=== PATIENT | female | born 1965 | race Caucasian/White ===

== ENCOUNTER 2018-11-23 15:16 | Emergency (ER) | payer OTHER ==
--- OUTSIDE RECORDS SUMMARY | 2018-11-23 15:21 | XMS REPORT | Continuity of Care Document ---
:1965 External Reference #:[id number] Author Name Pippa Tolentino N.Franko Address [address] [place] [id number] Care Team Providers Name Role Phone Gi Acosta MD - Neurology Care Team Information Casualty Claim Adjuster Jennifer Powell MD Care Team Information Casualty Claim Adjuster [phone] Problems Active Problems Provider Date Hysterectomy Pippa Tolentino, N.P. Onset: 02/15/2015 Note: only uterus removed Essential hypertension Pippa Tolentino, N.P. Onset: 09/05/2016 Hyperlipidemia Pippa Tolentino, N.P. Onset: 06/28/2017 Seasonal allergic rhinitis Pippa Tolentino, N.PAlbertina Onset: 06/11/2018 Social History Type Date Description Comments Sex Unknown Tobacco Use Start: Unknown Never Smoked Cigarettes ETOH Use Denies alcohol use Tobacco Use Start: Unknown Patient has never smoked Smoking Status Reviewed: 10/02/17 Patient has never smoked Allergies, Adverse Reactions, Alerts Active Allergies Reaction Severity Comments Date Penicillin 08/16/2012 Medications Active Medications SIG Qnty Indications Ordering Date Provider Prednisone 2 by mouth 10tabs Rajan, 11/11/2018 20mg Tablets every day x 5 Mashelle, N.P. days Montelukast Sodium take one tablet 30tabs Rajan, 11/11/2018 10mg Tablets by mouth every Mashelle, N.P. evening Vascepa take two 120caps Rajan, 05/10/2018 1gm Capsules capsules by Mashelle, N.P. mouth twice a day with food Hydrochlorothiazide Take One Tablet 90tabs Rajan, 06/28/2017 12.5mg By Mouth Every Mashelle, N.P. Tablets Morning Xyzal Allergy 24HR Rajan, 10/13/2016 5mg Tablets Pippa, N.P. History Medications Benzonatate 1 by mouth three 15caps Pippa Tolentino, 10/23/2018 - 200mg times a day as N.P. 11/11/2018 Capsules needed cough Azithromycin 2 by mouth day 6tabs Pippa Tolentino, 10/23/2018 - 250mg one then 1 by N.P. 11/11/2018 Tablets mouth every day x 4 days Azithromycin as directed 1tabs Pippa Tolentino, 10/08/2018 - 250mg N.P. 10/23/2018 Tablets Ciprofloxacin HCL 1 by mouth twice 20tabs Pippa Tolentino, 09/24/2018 - 500mg a day x 10 days N.P. 10/01/2018 Tablets Medications Administered in Office Medication SIG Qnty Indications Ordering Provider Date Pippa Garcia N.P. 09/24/2018 Injection PPD Pippa Tolentino N.P. 09/19/2016 Injection Bonilla Ayoub MD 09/17/2007 Injection Immunizations CPT Code Status Date Vaccine Lot # [id number] Given 08/07/2012 Tdap (Adacel) Ages 7 And Above Only [id number] Refused 11/11/2018 Influenza Vac, Quadrivalent, Split, 0.5mL Dosage, Im Use [id number] Refused 01/22/2018 Influenza Vac, Quadrivalent, Split, 0.5mL Dosage, Im Use [id number] Refused 01/19/2017 Influenza Vac, Quadrivalent, Split, 0.5mL Dosage, Im Use Vital Signs Date Vital Result Comment 11/11/2018 1:01pm Body Temperature 98.4 F Weight 179.00 lb Heart Rate 88 /min BP Systolic 148 mmHg BP Diastolic 88 mmHg O2 % BldC Oximetry 99 % 10/23/2018 12:54pm Body Temperature 98.4 F Weight 178.12 lb Heart Rate 78 /min BP Systolic 114 mmHg BP Diastolic 78 mmHg O2 % BldC Oximetry 99 % Results Test Date Facility Test Result H/L Range Note Comprehensive Met Panel[facility] 08/15/2018 [facility] Sodium 144 mmol/L 135- 146 1, 2 Potassium 3.9 mmol/L 3.5-5.2 Chloride# 104 mmol/L 97-110 3 Carbon Dioxide 26 mmol/L 24-34 Calcium 9.1 mg/dL 8.5-10.5 4 Glucose 89 mg/dL 70-105 BUN 10 mg/dL 6-26 Creatinine 0.8 mg/dL 0.5-1.4 Total Protein 6.8 g/dL 6.0-8.0 Albumin 4.4 g/dL 3.6-4.9 Globulin 2.4 g/dL 2.0-3.5 A/G Ratio 1.8 Ratio 1.0-2.2 Total Bilirubin 0.7 mg/dL 0.1-1.3 Alkaline Phosphatase 40 U/L 24-140 Alt 17 U/L 3-42 Ast 27 U/L 8-42 Anion Gap 14 mmol/L 5-15 5 Female Egfr 81 >60 6 Male Egfr 101 >60 7 Lipid 08/15/2018 [facility] Cholesterol 221 mg/dL High 50-199 Triglycerides 103 mg/dL 30-200 HDL 54 mg/dL 35-85 8 Chol/ HDL Ratio 4.1 ratio 3.7-5.6 VLDL 21 mg/dL 2-29 LDL (Calc) 147 mg/dL High 20-99 9 1 This sample is drawn by:ss/bulk system operator 2 Updated reference range on new analyzer 3 Updated reference range on new analyzer 4 Updated reference range 06-05-2018 5 Updated Reference Range 6 Concerning GFR Guidelines for Americans: Normal function or mild renal disease, if clinically at risk: >/= 60 mL/min Moderately decreased: 30-59 Severely decreased: 15-29 Renal failure: <15 There is reduced accuracy above 60ml/min/1.73 m squared, but the numeric value may be clinically useful in the near 60 range 7 Concerning GFR Guidelines: Normal function or mild renal disease, if clinically at risk: >/= 60 mL/min Moderately decreased: 30-59 Severely decreased: 15-29 Renal failure: <15 There is reduced accuracy above 60ml/min/1.73 m squared, but the numeric value may be clinically useful in the near 60 range Glomerular Filtration Rate (GFR) is estimated based on the CKD-EPI equation, which assumes a steady state for creatinine as recommended by the National Kidney Disease Education Program in conjunction with the National Institutes of Health and the National Kidney Foundation. Clinical conditions in which it may be necessary to measure GFR by using clearance methods include extremes of age and body size, severe malnutrition or obesity, diseases of skeletal muscle, paraplegia or quadriplegia, vegetarian diet, rapidly changing kidney function, and calculation of the dose of potentially toxic drugs that are excreted by the kidneys. 8 Per NCEP ATP III Guidelines: Results lower than 40 mg/dL are suggestive of increased risk for coronary artery disease. Results > or = to 60 mg/dL are considered a negative risk factor. 9 Per NCEP ATP III Guidelines: Normal Population <130 Patients with medical conditions: CHD/DM Optimal: <100 Borderline high: 130-159 High: 160-189 Very high: >189 Procedures Date Code Description Status 02/25/2018 [id number] Mammogram Completed 05/23/2016 [id number] Colonoscopy Completed 02/21/2016 [id number] Mammogram Completed 03/03/2015 [id number] Mammogram Completed 02/27/2014 [id number] Mammogram Completed 06/22/2011 [id number] Colonoscopy Completed Medical Devices Description No Information Available Encounters Type Date Location Provider Dx Diagnosis Office Visit 10/23/2018 Pippa Wu, J20.9 Acute bronchitis, 1:00p N.P. unspecified I10 Essential (primary) hypertension Office Visit 09/24/2018 11:00a Pippa Wu, J01.00 Acute maxillary N.P. sinusitis, unspecified Z11.1 Encounter for screening for respiratory tuberculosis R05 Cough I10 Essential (primary) hypertension Office Visit 08/15/2018 8:45a Pippa Wu, I10 Essential ( primary) N.P. hypertension E78.00 Pure hypercholesterolemia, unspecified Office Visit 06/11/2018 11:00a Pippa Wu, R21 Rash and other N.P. nonspecific skin eruption E66.9 Obesity, unspecified I10 Essential (primary) hypertension Z68.30 Body mass index (BMI) 30.0-30.9, adult Assessments Date Code Description Provider 11/11/2018 R53.83 Other fatigue Pippa Tolentino, N.P. 11/11/2018 M25.50 Pain in unspecified joint Pippa Tolentino, N.P. 11/11/2018 J30.9 Allergic rhinitis, unspecified Pippa Tolentino, N.P. 11/11/2018 Z28.21 Immunization not carried out because of Pippa Tolentino, N.P. patient refusal 10/23/2018 J20.9 Acute bronchitis, unspecified Pippa Tolentino, N.P. 10/23/2018 I10 Essential (primary) hypertension Pippa Tolentino, N.P. 09/24/2018 J01.00 Acute maxillary sinusitis, unspecified Pippa Tolentino, N.P. 09/24/2018 Z11.1 Encounter for screening for respiratory Pippa Tolentino, N.P. tuberculosis 09/24/2018 R05 Cough Pippa Tolentino, N.P. 09/24/2018 I10 Essential (primary) hypertension Pippa Tolentino, N.P. 08/15/2018 I10 Essential (primary) hypertension Pippa Tolentino, N.P. 08/15/2018 E78.00 Pure hypercholesterolemia, unspecified Pippa Tolentino, N.P. 08/15/2018 I10 Essential (primary) [facility] 08/15/2018 E78.00 Pure hypercholesterolemia, unspecified [facility] 06/11/2018 R21 Rash and other nonspecific skin eruption Pippa Tolentino, N.P. 06/11/2018 E66.9 Obesity, unspecified Pippa Tolentino, N.P. 06/11/2018 I10 Essential (primary) hypertension Pippa Tolentino, N.P. 06/11/2018 Z68.30 Body mass index (BMI) 30.0-30.9, adult Pippa Tolentino, N.P. Plan of Treatment 11/11/2018 - Pippa Tolentino, N.P.R53.83 Other fatigueComments:most likely result of lifestylediscussed weight, inactivity, smoking, poor eating habits as contributors to fatigueflu lab iedvqraI98.50 Pain in unspecified jointComments:f /u lab lexqhilV77.9 Allergic rhinitis, unspecifiedComments:cont Xyzal - suggest taking it in amstart short course [facility] [place] any nasal spray so this is not an optionrecheck if no better 5 daysZ28.21 Immunization not carried out because of patient refusalComments: patient counseled about benefits of receiving flu vaccinedeclines at this time for non-specific reasonAllNew Medication:Prednisone 20 mg - 2 by mouth every day x 5 daysMontelukast Sodium 10 mg - take one tablet by mouth every evening Functional Status Description No Information Available Mental Status Description No Information Available Referrals Refer to Reason for Referral Status Appt Date Ulices Stacy persistent itchy rash Closed 06/21/2018 [facility] [address] [place] [id number] [phone]
--- OUTSIDE RECORDS SUMMARY | 2018-11-23 15:21 | XMS REPORT | Continuity of Care Document ---
:1965 External Reference #:[id number] Author Name Pippa Tolentino N.Franko Address [address] [place] [id number] Care Team Providers Name Role Phone Gi Acosta MD - Neurology Care Team Information Lens Molder [phone] Jennifer Powell MD Care Team Information Lens Molder [phone] Problems Active Problems Provider Date Hysterectomy Pippa [...] Medications SIG Qnty Indications Ordering Date Provider Benzonatate 1 by mouth 15caps Rajan, 10/23/2018 200mg Capsules three times a Mashelle, N.P. day as needed cough Azithromycin 2 by mouth day 6tabs Rajan, 10/23/2018 250mg Tablets one then 1 by Mashelle, N.P. mouth every day x 4 days Vascepa take two 120caps Rajan, 05/10/2018 1gm Capsules capsules by Mashelle, N.P. mouth twice a day with food Hydrochlorothiazide Take One Tablet 90tabs Rajan, 06/28/2017 12.5mg By Mouth Every Mashelle, N.P. Tablets Morning Xyzal Allergy 24HR Rajan, 10/13/2016 5mg Tablets Mascelile, N.P. History Medications Azithromycin as directed 1tabs Pippa Tolentino, 10/08/2018 - 250mg N.P. 10/23/2018 Tablets Ciprofloxacin HCL 1 by mouth twice 20tabs Pippa Tolentino, 09/24/2018 - 500mg a day x 10 days N.P. 10/01/2018 Tablets Medications Administered in Office Medication SIG Qnty Indications Ordering Provider Date Pippa Garcia, N.P. 09/24/2018 Injection Pippa Garcia N.P. 09/19/2016 Injection Bonilla Ayoub MD 09/17/2007 Injection Immunizations CPT Code Status Date Vaccine Lot # [id number] Given 08/07/2012 Tdap (Adacel) Ages 7 And Above Only [id number] Refused 01/22/2018 Influenza Vac, Quadrivalent, Split, 0.5mL Dosage, Im Use 68044 Refused 01/19/2017 Influenza Vac, Quadrivalent, Split, 0.5mL Dosage, Im Use Vital Signs Date Vital Result Comment 10/23/2018 12:54pm Body Temperature 98.4 F Weight 178.12 lb Heart Rate 78 /min BP Systolic 114 mmHg BP Diastolic 78 mmHg O2 % BldC Oximetry 99 % 09/24/2018 10:55am Body Temperature 98.8 F Weight 172.00 lb Heart Rate 75 /min BP Systolic 126 mmHg BP Diastolic 86 mmHg O2 % BldC Oximetry 98 % Results Test Date Facility Test Result [...] LDL (Calc) 147 mg/dL High 20-99 9 Laboratory test finding 05/10/2018 [facility] TSH 2.84 uIU/mL 0.35-4.94 10 Comprehensive Met Panel[facility] 05/10/2018 [facility] Sodium 139 mmol/L 135- 146 11 Potassium 5.0 mmol/L 3.5-5.2 Chloride# 104 mmol/L 97-110 12 Carbon Dioxide 28 mmol/L 24-34 Glucose 90 mg/dL 70-105 BUN 17 mg/dL 6-26 Creatinine 0.8 mg/dL 0.5-1.4 Calcium 9.4 mg/dL 8.5-10.2 Total Protein 6.7 g/dL 6.0-8.0 Albumin 4.5 g/dL 3.6-4.9 Globulin 2.2 g/dL 2.0-3.5 A/G Ratio 2.0 Ratio 1.0-2.2 Total Bilirubin 0.6 mg/dL 0.1-1.3 Alkaline Phosphatase 45 U/L 24-140 Alt 14 U/L 3-42 Ast 17 U/L 8-42 Anion Gap 7 mmol/L 5-15 13 Carmen Egfr >60 >60 14 Non Carmen Egfr >60 >60 15 Lipid 05/10/2018 [facility] Cholesterol 235 mg/dL High 50-199 Triglycerides 167 mg/dL 30-200 HDL 52 mg/dL 35-85 16 Chol/ HDL Ratio 4.6 ratio 3.7-5.6 VLDL 33 mg/dL High 2-29 LDL (Calc) 150 mg/dL High 20-99 17 1 This sample is drawn by:ss/chief technology officer 2 Updated reference range on new analyzer 3 Updated reference range on new analyzer 4 Updated reference range 06-05-2018 5 Updated Reference Range 2-2018 6 Concerning GFR Guidelines for Americans: Normal [...] high: 130-159 High: 160-189 Very high: >189 10 This sample is drawn by:DL/[employer] 11 Updated reference range on new analyzer 12 Updated reference range on new analyzer 13 Updated Reference Range 14 Concerning GFR Guidelines for Americans: Normal function or mild renal disease, if clinically at risk: >/= 60 mL/min Moderately decreased: 30-59 Severely decreased: 15-29 Renal failure: <15 15 Concerning GFR Guidelines: Normal function or mild renal disease, if clinically at risk: >/= 60 mL/min Moderately decreased: 30-59 Severely decreased: 15-29 Renal failure: <15 Glomerular Filtration Rate (GFR) is estimated based on the MDRD equation, which assumes a steady state for [...] drugs that are excreted by the kidneys. 16 Per NCEP ATP III Guidelines: Results lower than 40 mg/dL are suggestive of increased risk for coronary artery disease. Results > or = to 60 mg/dL are considered a negative risk factor. 17 Per NCEP ATP III Guidelines: Normal Population <130 Patients with medical conditions: CHD/DM Optimal: <100 Borderline high: 130-159 High: 160-189 Very high: >189 Procedures Date Code Description Status 02/25/2018 [id number] Mammogram Completed 05/23/2016 [id number] Colonoscopy Completed 02/21/2016 [id number] Mammogram Completed 03/03/2015 [id number] Mammogram Completed 02/27/2014 [id number] Mammogram Completed 06/22/2011 [id number] Colonoscopy Completed Medical Devices Description No Information Available Encounters Type Date Location Provider Dx Diagnosis Office Visit 09/24/2018 Pippa Wu, J01.00 Acute maxillary 11:00a N.P. sinusitis, unspecified Z11.1 Encounter for screening for respiratory tuberculosis R05 Cough I10 Essential (primary) hypertension Office Visit 08/15/2018 8:45a Pippa Wu, I10 Essential ( primary) N.P. hypertension E78.00 Pure hypercholesterolemia, unspecified Office Visit 06/11/2018 11:00a Pippa uW, R21 Rash and other N.P. nonspecific skin eruption E66.9 Obesity, unspecified I10 Essential (primary) hypertension Z68.30 Body mass index (BMI) 30.0-30.9, adult Office Visit 05/10/2018 8:15a Pippa Wu, I10 Essential ( primary) N.P. hypertension I10 Essential (primary) hypertension R53.83 Other fatigue R53.83 Other fatigue E78.00 Pure hypercholesterolemia, unspecified E78.00 Pure hypercholesterolemia, unspecified Z13.31 Encounter for screening for depression J30.9 Allergic rhinitis, unspecified Assessments Date Code Description Provider 10/23/2018 J20.9 Acute bronchitis, unspecified Esther Tolentinole, N.P. 10/23/2018 I10 Essential (primary) hypertension Esther Tolentinole, N.P. 09/24/2018 J01.00 Acute maxillary sinusitis, unspecified Esther Tolentinole, N.P. 09/24/2018 Z11.1 Encounter for screening for respiratory Pippa Tolentino, N.P. tuberculosis 09/24/2018 R05 Cough Esther Tolentinole, N.P. 09/24/2018 I10 Essential (primary) hypertension Esther Tolentinole, N.P. 08/15/2018 I10 Essential (primary) hypertension Esther Tolentinole, N.P. 08/15/2018 E78.00 Pure hypercholesterolemia, unspecified Esther Tolentinole, N.P. 08/15/2018 I10 Essential (primary) [facility] 08/15/2018 E78.00 Pure hypercholesterolemia, unspecified [facility] 06/11/2018 R21 Rash and other nonspecific skin eruption Esther Tolnetinole, N.P. 06/11/2018 E66.9 Obesity, unspecified Esther Tolentinole, N.P. 06/11/2018 I10 Essential (primary) hypertension Esther Tolentinole, N.P. 06/11/2018 Z68.30 Body mass index (BMI) 30.0-30.9, adult Esther Tolentinole, N.P. 05/10/2018 I10 Essential (primary) hypertension Esther Tolentinole, N.P. 05/10/2018 I10 Essential (primary) hypertension Matt Tolentinohelle, N.P. 05/10/2018 R53.83 Other fatigue Rajan, Matthelle, N.P. 05/10/2018 R53.83 Other fatigue Esther Tolentinole, N.P. 05/10/2018 E78.00 Pure hypercholesterolemia, unspecified Matt Tolentinohelle, N.P. 05/10/2018 E78.00 Pure hypercholesterolemia, unspecified Esther Tolentinole, N.P. 05/10/2018 Z13.31 Encounter for screening for depression Esther Tolentinole, N.P. 05/10/2018 J30.9 Allergic rhinitis, unspecified Pippa Tolentino, N.P. 05/10/2018 I10 Essential (primary) hypertension [facility] 05/10/2018 R53.83 Other fatigue [facility] 05/10/2018 E78.00 Pure hypercholesterolemia, unspecified [facility] Plan of Treatment 10/23/2018 - Pippa Tolentino N.P.J20.9 Acute bronchitis, unspecifiedComments: increase fluids and restzithromax as rx'd, OTC sudafed for 3 days only, start Benzonatate for coughreport non-resolution 3-5 daysI10 Essential (primary) hypertensionComments:cont HCTZ and recheck 1 weekAllNew Medication:Benzonatate 200 mg - 1 by mouth three times a day as needed coughAzithromycin 250 mg - 2 by mouth day one then 1 by mouth every day x 4 days Functional Status Description No Information Available Mental Status Description No Information Available Referrals Refer to Reason for Referral Status Appt Date Ulices Stacy persistent itchy rash Closed 06/21/2018 [facility] [id number] [place] [address] [phone]
--- OUTSIDE RECORDS SUMMARY | 2018-11-23 15:21 | XMS REPORT | Continuity of Care Document ---
:1965 External Reference #:[id number] Author Name Pippa Tolentino N.Franko Address [address] [place] [id number] Care Team Providers Name Role Phone Gi Acosat MD - Neurology Care Team Information Sustainability Manager Jennifer Powell MD Care Team Information Sustainability Manager [phone] Problems Active Problems Provider Date Hysterectomy Pippa Tolentino, N.PAlbertina Onset: 02/15/2015 Note: only uterus removed Essential [...] Medications SIG Qnty Indications Ordering Date Provider Vascepa Take Two 120caps Rajan, 05/10/2018 1gm Capsules Capsules By Mashelle, N.P. Mouth Twice A Day With Food Hydrochlorothiazide Take One Tablet 90tabs Rajan, 06/28/2017 12.5mg By Mouth Every Mashelle, N.P. Tablets Morning Xyzal Allergy 24HR Rajan, 10/13/2016 5mg Tablets Mashelle, N.P. History Medications Ciprofloxacin HCL 1 by mouth 20tabs Pippa Tolentino, 09/24/2018 - 500mg twice a day x N.P. 10/01/2018 Tablets 10 days Medications Administered in Office Medication SIG Qnty Indications Ordering Provider Date Pippa Garcia N.Gaby. 09/24/2018 Injection Pippa Garcia NMiguel 09/19/2016 Injection Bonilla Ayoub MD 09/17/2007 Injection Immunizations CPT Code Status Date Vaccine Lot # [id number] Given 08/07/2012 Tdap (Adacel) Ages 7 And Above Only 04276 Refused 01/22/2018 Influenza Vac, Quadrivalent, Split, 0.5mL Dosage, Im Use 92269 Refused 01/19/2017 Influenza Vac, Quadrivalent, Split, 0.5mL Dosage, Im Use Vital Signs Date Vital Result Comment 09/24/2018 10:55am Body Temperature 98.8 F Weight 172.00 lb Heart Rate 75 /min BP Systolic 126 mmHg BP Diastolic 86 mmHg O2 % BldC Oximetry 98 % 08/15/2018 8:43am Body Temperature 98.4 F Weight 179.12 lb Heart Rate 64 /min BP Systolic 130 mmHg BP Diastolic 80 mmHg O2 % BldC Oximetry 97 % Results Test Date Facility Test Result [...] 20-99 17 1 This sample is drawn by:ss/security installation technician 2 Updated reference range on new analyzer [...] high: >189 10 This sample is drawn by:DL/LAW OFFICE RECEPTIONIST 11 Updated reference range on new analyzer [...] >189 Procedures Date Code Description Status 02/25/2018 [id number] Mammogram Completed 05/23/2016 [id number] Colonoscopy Completed 02/21/2016 [id number] Mammogram Completed 03/03/2015 [id number] Mammogram Completed 02/27/2014 [id number] Mammogram Completed 06/22/2011 [id number] Colonoscopy Completed Medical Devices Description No Information [...] rhinitis, unspecified Assessments Date Code Description Provider 09/24/2018 J01.00 Acute maxillary sinusitis, unspecified Pippa Tolentino, N.P. 09/24/2018 Z11.1 Encounter for screening for respiratory Pippa Tolentino, N.P. tuberculosis 09/24/2018 R05 Cough Pippa Tolentino, N.P. 09/24/2018 I10 Essential (primary) hypertension Pippa Tolentino, N.P. 08/15/2018 I10 Essential (primary) hypertension Rajan, Mashelle, N.P. 08/15/2018 E78.00 Pure hypercholesterolemia, unspecified Pippa Tolentino, N.P. 08/15/2018 I10 Essential (primary) hypertension [facility] 08/15/2018 E78.00 Pure hypercholesterolemia, unspecified [facility] 06/11/2018 R21 Rash and other nonspecific skin eruption Pippa Tolentino, N.P. 06/11/2018 E66.9 Obesity, unspecified Pippa Tolentino, N.P. 06/11/2018 I10 Essential (primary) hypertension Pippa Tolentino, N.P. 06/11/2018 Z68.30 Body mass index (BMI) 30.0-30.9, adult Pippa Tolentino, N.P. 05/10/2018 I10 Essential (primary) hypertension Pippa Tolentino, N.P. 05/10/2018 I10 Essential (primary) hypertension Pippa Tolentino, N.P. 05/10/2018 R53.83 Other fatigue Pippa Tolentino, N.P. 05/10/2018 R53.83 Other fatigue Pippa Tolentino, N.P. 05/10/2018 E78.00 Pure hypercholesterolemia, unspecified Pippa Tolentino, N.P. 05/10/2018 E78.00 Pure hypercholesterolemia, unspecified Pippa Tolentino, N.P. 05/10/2018 Z13.31 Encounter for screening for depression Pippa Tolentino, N.P. 05/10/2018 J30.9 Allergic rhinitis, unspecified Pippa Tolentino, N.P. 05/10/2018 I10 Essential (primary) hypertension [facility] 05/10/2018 R53.83 Other fatigue [facility] 05/10/2018 E78.00 Pure hypercholesterolemia, unspecified [facility] Plan of Treatment 09/24/2018 - Pippa Tolentino, N.P.J01.00 Acute maxillary sinusitis, unspecifiedComments:ciproOTC mucinex,sudafed, increase fluids, rest, yqjjkacgkE18.1 Encounter for screening for respiratory iclggmpkwmqiK26 CoughComments:mucinex 1200mg every 12 cifjnD61 Essential (primary) hypertensionComments: stable with current meds. Cont same pt inst to monitor B/ P at home/work 2-3 times per week and report abngoal: <140/90AllNew Medication:Ciprofloxacin HCL 500 mg - 1 by mouth twice a day x 10 days Functional Status Description No Information Available Mental Status Description No Information Available Referrals Refer to Reason for Referral Status Appt Date Ulices Stacy persistent itchy rash Closed 06/21/2018 [facility] [address] [place] [address] [phone]
--- OUTSIDE RECORDS SUMMARY | 2018-11-23 15:21 | XMS REPORT | Continuity of Care Document ---
:1965 External Reference #:[id number] Author Name Pippa Tolentino NMiguel Address [address] [place] [id number] Care Team Providers Name Role Phone Gi Acosta MD - Neurology Care Team Information General Practice Jennifer Powell MD Care Team Information General Practice [phone] Problems Active Problems Provider Date Hysterectomy Pippa [...] Medications SIG Qnty Indications Ordering Date Provider Work Note may not return Rajan, 11/15/2018 to work today Pippa, N.P. for medical reasons Vascepa take two 120caps Rajan, 05/10/2018 1gm Capsules capsules by Mashelle, N.P. mouth twice a day with food Hydrochlorothiazide Take One Tablet 90tabs Rajan, 06/28/2017 12.5mg By Mouth Every Mashelle, N.P. Tablets Morning Xyzal Allergy 24HR Rajan, 10/13/2016 5mg Tablets Mashelle, N.P. History Medications Prednisone 2 by mouth every 10tabs Pippa Tolentino, 11/11/2018 - 20mg Tablets day x 5 days N.P. 11/15/2018 Montelukast Sodium take one tablet 30tabs Pippa Tolentino, 11/11/2018 - 10mg by mouth every N.P. 11/15/2018 Tablets evening Benzonatate 1 by mouth three 15caps Pippa [...] Date Pippa Garcia, N.P. 09/24/2018 Injection Pippa Garcia, N.P. 09/19/2016 Injection Bonilla Ayoub MD 09/17/2007 Injection Immunizations CPT Code Status Date Vaccine Lot # [id number] Given 08/07/2012 Tdap (Adacel) Ages 7 And Above Only [id number] Refused 11/11/2018 Influenza Vac, Quadrivalent, Split, 0.5mL Dosage, Im Use [id number] Refused 01/22/2018 Influenza Vac, Quadrivalent, Split, 0.5mL Dosage, Im Use [id number] Refused 01/19/2017 Influenza Vac, Quadrivalent, Split, 0.5mL Dosage, Im Use Vital Signs Date Vital Result Comment 11/15/2018 12:20pm Body Temperature 98.6 F Heart Rate 93 /min BP Systolic 144 mmHg BP Diastolic 80 mmHg O2 % BldC Oximetry 99 % 11/11/2018 1:01pm Body Temperature 98.4 F Weight 179.00 lb Heart Rate 88 /min BP Systolic 148 mmHg BP Diastolic 88 mmHg O2 % BldC Oximetry 99 % Results Test Date Facility Test Result H/L Range Note CBC with Auto Diff-fcmg 11/11/2018 [facility] WBC 5.9 K/uL 4.1-11.0 1 RBC 4.82 M/uL 4.00-5.40 Hemoglobin 13.4 gm/dL 12.0-16.0 Hematocrit 40.8 % 36.0-47.0 MCV 84.7 fL 80.0-97.0 MCH 27.9 pg 27.0-32.0 MCHC 32.9 g/dL 32.0-36.0 RDW 15.3 % High 11.5-14.5 PLT Count 267 K/ul 140-400 MPV 7.5 FL 7.1-10.7 Neutrophil 39.3 % 35.0-75.0 Lymphocyte 42.9 % 16.0-52.0 Monocyte 6.4 % 2.0-10.0 Eosinophil 9.5 % High 0.0-5.0 Basophil 1.9 % 0.0-4.0 Abs Neutrophils 2.3 K/uL 2.1-8.0 Abs Lymphocytes 2.5 K/uL 0.8-5.5 Abs Monocytes 0.4 K/uL 0.1-1.0 Abs Eosinophils 0.6 K/uL High 0.0-0.5 Abs Basophils 0.1 K/uL 0.0-0.3 Basic (BMP) 11/11/2018 [facility] Sodium 142 mmol/L 135-146 2 Potassium 4.0 mmol/L 3.5-5.2 Chloride# 101 mmol/L 97-110 3 Carbon Dioxide 31 mmol/L 24-34 Glucose 115 mg/dL High 70-105 BUN 18 mg/dL 6-26 Creatinine 0.8 mg/dL 0.5-1.4 Calcium 9.5 mg/dL 8.5-10.5 4 Female Egfr 91 >60 5 Male Egfr 105 >60 6 Anion Gap 10 mmol/L 5-15 7 Lyme Igm/Igg AB -RL 11/11/2018 [facility] Lyme Igm/Igg AB NEGATIVE (Neg) 8 @ [facility] 08/15/2018 [facility] Sodium 144 mmol/L 135-146 9, 10 [facility] Potassium 3.9 mmol/L 3.5-5.2 Chloride# 104 mmol/L 97-110 11 Carbon Dioxide 26 mmol/L 24-34 Calcium 9.1 mg/dL 8.5-10.5 12 Glucose 89 mg/dL 70-105 BUN 10 mg/dL 6-26 Creatinine 0.8 mg/dL 0.5-1.4 Total Protein 6.8 g/dL 6.0-8.0 Albumin 4.4 g/dL 3.6-4.9 Globulin 2.4 g/dL 2.0-3.5 A/G Ratio 1.8 Ratio 1.0-2.2 Total Bilirubin 0.7 mg/dL 0.1-1.3 Alkaline Phosphatase 40 U/L 24-140 Alt 17 U/L 3-42 Ast 27 U/L 8-42 Anion Gap 14 mmol/L 5-15 13 Female Egfr 81 >60 14 Male Egfr 101 >60 15 Lipid 08/15/2018 [facility] Cholesterol 221 mg/dL High 50-199 Triglycerides 103 mg/dL 30-200 HDL 54 mg/dL 35-85 16 Chol/ HDL Ratio 4.1 ratio 3.7-5.6 VLDL 21 mg/dL 2-29 LDL (Calc) 147 mg/dL High 20-99 17 1 This sample is drawn by:[facility] 2 Updated reference range on new analyzer 3 Updated reference range on new analyzer 4 Updated reference range 06-05-2018 5 Concerning GFR Guidelines for Americans: Normal function or mild renal disease, if clinically at risk: >/= 60 mL/min Moderately decreased: 30-59 Severely decreased: 15-29 Renal failure: <15 There is reduced accuracy above 60ml/min/1.73 m squared, but the numeric value may be clinically useful in the near 60 range 6 Concerning GFR Guidelines: Normal function or mild [...] drugs that are excreted by the kidneys. 7 Updated Reference Range 8 A Negative serologic test for Lyme Disease indicates no serologic evidence of infection with B burgdorferi at the time this specimen was collected. A repeat specimen should be collected in 2 to 4 weeks if clinically indicated. Unless otherwise specified, testing performed by [facility] [address] [address] 9 This sample is drawn by:taylor/fermin 10 Updated reference range on new analyzer 11 Updated reference range on new analyzer 12 Updated reference range 06-05-2018 13 Updated Reference Range 14 Concerning GFR Guidelines for Americans: Normal function or mild renal disease, if clinically at risk: >/= 60 mL/min Moderately decreased: 30-59 Severely decreased: 15-29 Renal failure: <15 There is reduced accuracy above 60ml/min/1.73 m squared, but the numeric value may be clinically useful in the near 60 range 15 Concerning GFR Guidelines: Normal function or [...] >189 Procedures Date Code Description Status 02/25/2018 [id number] Mammogram Completed 05/23/2016 [id number] Colonoscopy Completed 02/21/2016 [id number] Mammogram Completed 03/03/2015 [id number] Mammogram Completed 02/27/2014 [id number] Mammogram Completed 06/22/2011 [id number] Colonoscopy Completed Medical Devices Description No Information Available Encounters Type Date Location Provider Dx Diagnosis Office Visit 11/15/2018 12:30p Pippa Wu, N.P. R53.81 Other malaise Office Visit 11/11/2018 1:00p Pippa Wu, N.P. R53.83 Other fatigue M25.50 Pain in unspecified joint J30.9 Allergic rhinitis, unspecified Z28.21 Immunization not carried out because of patient refusal Office Visit 10/23/2018 1:00p Pippa Wu, J20.9 Acute bronchitis, N.P. unspecified I10 Essential (primary) hypertension Office [...] 30.0-30.9, adult Assessments Date Code Description Provider 11/15/2018 R53.81 Other malaise Pippa Tolentino, N.P. 11/11/2018 R53.83 Other fatigue Pippa Tolentino, N.P. 11/11/2018 M25.50 Pain in unspecified joint Pippa Tolentino, N.P. 11/11/2018 J30.9 Allergic rhinitis, unspecified Pippa Tolentino, N.P. 11/11/2018 Z28.21 Immunization not carried out because of Pippa Tolentino, N.P. patient refusal 11/11/2018 R53.83 Other fatigue [facility] 11/11/2018 M25.50 Pain in unspecified joint [facility] 10/23/2018 J20.9 Acute bronchitis, unspecified Pippa Tolentino, [...] Tolentino, N.P. 08/15/2018 I10 Essential (primary) hypertension [facility] 08/15/2018 E78.00 Pure hypercholesterolemia, unspecified [facility] 06/11/2018 R21 Rash and other nonspecific skin eruption Pippa Tolentino, N.P. 06/11/2018 E66.9 Obesity, unspecified Pippa Tolentino, N.P. 06/11/2018 I10 Essential (primary) hypertension Pippa Tolentino, N.P. 06/11/2018 Z68.30 Body mass index (BMI) 30.0-30.9, adult Pippa Tolentino, N.P. Plan of Treatment 11/15/2018 - Pippa Tolentino, N.P.R53.81 Other malaiseComments:pedro pablo be due to meds, she will stop Singulair and prednisone and report non-resolution symps 48hAllNew Medication:Work Note - may not return to work today for medical reasons Functional Status Description No Information Available Mental Status Description No Information Available Referrals Refer to Reason for Referral Status Appt Date Ulices Stacy persistent itchy rash Closed 06/21/2018 [facility] [address] [place] [address] [phone]
--- NOTE | 2018-11-23 15:50 | UC ---
Throat Pain/Nasal Elvin HPI - HPI Summary HPI Summary: started with ST 2 days ago. today has fever, ST, cough. Over past 2 months, patient has been treated by PCP with zelda clifford (2 courses) for sinusitis and cough , prednisone (not [place]) and singulair (for her chronic allergies - not kingsley) . also had labs drawn which were neg - History of Current Complaint Chief Complaint: UCGeneralIllness Stated Complaint: SORE THROAT Time Seen by Provider: 11/23/18 15:42 Hx Obtained From: Patient Hx Last Menstrual Period: post menopause ?: No Onset/Duration: Gradual Onset Severity: Moderate Pain Intensity: 7 Cough: Nonproductive Associated Signs & Symptoms: Positive: Fever Related History: Seasonal Allergies - Allergies/Home Medications Allergies/Adverse Reactions: Allergies Allergy/AdvReac Type Severity Reaction Status Date / Time amoxicillin Allergy Rash Verified 11/23/18 15:28 montelukast [From Singulair] Allergy Palpitation Verified 11/23/18 15:29 s prednisone Allergy Palpitation Verified 11/23/18 15:28 s Home Medications: Home Medications Icosapent Ethyl [Vascepa] 11/23/18 [History] Levocetirizine Dihydrochloride [Xyzal] 11/23/18 [History] hydroCHLOROthiazide [Hydrochlorothiazide] 11/23/18 [History] PMH/Surg Hx/FS Hx/Imm Hx Previously Healthy: Yes Endocrine History: Dyslipidemia Cardiovascular History: Hypertension - Surgical History Surgical History: Yes Surgery Procedure, Year, and Place: partial hysterectomy 2005. poylp removed from colon 2011 - Family History Known Family History: Positive: Non-Contributory - Social History Occupation: Employed Full-time Lives: With Family Alcohol Use: None Substance Use Type: None Smoking Status (MU): Never Smoked Tobacco Review of Systems All Other Systems Reviewed And Are Negative: Yes Constitutional: Positive: Fever, Fatigue Skin: Positive: Negative. Negative: Rash Eyes: Positive: Negative ENT: Positive: Sore Throat, Sinus Congestion Respiratory: Positive: Cough. Negative: Shortness Of Breath Cardiovascular: Positive: Negative Gastrointestinal: Positive: Negative Neurological: Positive: Negative Psychological: Positive: Negative Is Patient Immunocompromised?: No Physical Exam Triage Information Reviewed: Yes Appearance: Well-Appearing, No Pain Distress, Well-Nourished Vital Signs: Initial Vital Signs Temp 102.1 F 11/23/18 15:20 Pulse 116 11/23/18 15:20 Resp 16 11/23/18 15:20 BP 151/102 11/23/18 15:20 Pulse Ox 98 11/23/18 15:20 Vital Signs Reviewed: Yes Eyes: Positive: Conjunctiva Clear ENT: Positive: Pharynx normal, Nasal congestion, TMs normal Neck exam: Normal Neck: Positive: Supple, Nontender, No Lymphadenopathy Respiratory Exam: Normal Respiratory: Positive: Lungs clear. Negative: Wheezing Cardiovascular Exam: Normal Cardiovascular: Positive: RRR Neurological Exam: Normal Neurological: Positive: Alert Psychological Exam: Normal Skin Exam: Normal Skin: Negative: Rashes Diagnostics - Radiology No standard instances Radiology Interpretation Completed By: Radiologist - negative Chest Xray Throat Pain/Nasal Course/Dx - Differential Dx/Diagnosis Differential Diagnosis/HQI/PQRI: Influenza, Pharyngitis, Sinusitis, Tonsillitis , URI, Other - pneumonia Provider Diagnosis: Upper respiratory infection Discharge ED - Sign-Out/Discharge Documenting (check all that apply): Patient Departure All imaging exams completed and their final reports reviewed: Yes - negative CXR - Discharge Plan Condition: Good Disposition: HOME Patient Education Materials: Upper Respiratory Infection (DC) Referrals: Pippa Tolentino NP [Primary Care Provider] - 3 Days (for recheck if no better) Additional Instructions: drink plenty of fluids and rest take vitamin C 1000 mg before bed every night while sick - Billing Disposition and Condition Condition: GOOD Disposition: Home
[2018-11-23] MEDS ORDERED: Ibuprofen TAB* 400 MG PO ONE (15:59)
[2018-11-23 16:19] LABS: Influenza A Molecular NEGATIVE (Negative); Influenza B Molecular NEGATIVE (Negative)
[2018-11-23] MEDS ORDERED: Acetaminophen TAB* 325 MG PO ONE (16:32)
[2018-11-23 17:26] VITALS: BP 140/86
== END 2018-11-23 17:37 | disposition home or self-care (01) ==
LOC: UCEAST 15:16
DX: J06.9 Acute upper respiratory infection, unspecified (principal); E78.5 Hyperlipidemia, unspecified; I10 Essential (primary) hypertension; Z79.899 Other long term (current) drug therapy; Z88.8 Allergy status to other drugs, medicaments and biological substances; Z88.0 Allergy status to penicillin; Z90.710 Acquired absence of both cervix and uterus
CPT/HCPCS: 71046; 81003; 87086; 87651; 99212; A9270-GY; G0463